=== PATIENT | male | born 1965 | race Caucasian/White ===

== ENCOUNTER → 2023-06-16 19:09 | Outpatient (REF) | payer BC, SELFPAY | LOC: MRI 3T 19:09 | PROVIDERS: ATTENDING PHYSICIAN Surgery; FAMILY PHYSICIAN Family Medicine | DX: R97.20 Elevated prostate specific antigen [PSA] (principal) | CPT/HCPCS: 72197; A9575 ==

== ENCOUNTER → 2024-12-01 19:34 | Outpatient (REF) | payer BC, SELFPAY | LOC: MRI 3T 19:34 | PROVIDERS: ATTENDING PHYSICIAN Surgery; FAMILY PHYSICIAN Family Medicine | DX: R97.20 Elevated prostate specific antigen [PSA] (principal) | CPT/HCPCS: 72197; A9575 ==